=== PATIENT | female | born 1975 | race African-American/Black ===

== ENCOUNTER 2023-01-23 20:40 | Emergency (ER) | payer MEDICAID ==
[~2023-01-23] VITALS: Ht 185.4 cm; Wt 96.3 kg
[2023-01-23 21:44] VITALS: O2SAT 97
[2023-01-23] MEDS ORDERED: IBUPROFEN 600MG TABLET PO STA (23:46)
[2023-01-24 01:53] VITALS: BP 124/84
[2023-01-24 03:26] VITALS: PULSE 98; RESP 18; TEMP 98.3
== END 2023-01-24 03:27 | disposition home or self-care (01) ==
LOC: ER 20:40
DX: M25.562 Pain in left knee (principal); M25.561 Pain in right knee; I10 Essential (primary) hypertension; J44.1 Chronic obstructive pulmonary disease with (acute) exacerbation; Z98.890 Other specified postprocedural states; Z86.59 Personal history of other mental and behavioral disorders
CPT/HCPCS: 71045; 73562; 99284

== ENCOUNTER 2023-10-24 22:17 | Inpatient (IN) | payer MEDICAID ==
[~2023-10-24] VITALS: Ht 182.9 cm; Wt 44.9 kg
[2023-10-24] MEDS: ALBUTEROL (0.083%) 2.5MG/3ML NEB HHN STA (23:56)
[2023-10-24] MEDS: IPRATROPIUM BROMIDE (0.02%) 0.5MG/2.5ML NEB HHN STA (23:56)
[2023-10-24 23:58] VITALS: PULSE 77; RESP 20; O2SAT 96
[2023-10-25 00:02] LABS: BASOPHILS % 0.2 % (0.0-2.0); EOSINOPHILS % 5.7 % (0.0-5.0); HEMATOCRIT. 40.1 % (36.0-48.0); HEMOGLOBIN. 13.4 g/dL (12.0-16.0); MEAN CORPUSCULAR HEMOGLOBIN 30.9 pg (28.0-32.0); MEAN CORPUSCULAR HGB CONC 33.4 g/dL (31.0-37.0); MEAN CORPUSCULAR VOLUME 92.6 fL (81.0-99.0); MEAN PLATELET VOLUME 10.2 fl (7.4-10.4); MONOCYTES % 7.1 % (2.0-8.0); PLATELET 238 x1000/uL (130-400); RED BLOOD CELL COUNT 4.33 mill/uL (4.2-5.4); RED CELL DISTRIBUTION WIDTH 13.5 % (11.6-14.6); WHITE BLOOD COUNT 8.3 x1000/uL (4.5-11.0)
[2023-10-25 00:12] LABS: CHLORIDE 108 mEq/L (98-107); SODIUM 141 mEq/L (136-145)
[2023-10-25 00:13] LABS: CARBON DIOXIDE 29 mEq/L (21-32)
[2023-10-25 00:14] LABS: CALCIUM 9.3 mg/dL (8.7-10.4)
[2023-10-25 00:18] LABS: CREATININE 0.7 mg/dL (0.6-1.0); GLUCOSE 97 mg/dL (70-105)
[2023-10-25 00:19] LABS: TROPONIN I HIGH SENSITIVITY 4 ng/L (3.0-34); UREA NITROGEN BLOOD 8 mg/dL (9-23)
[2023-10-25 00:23] LABS: ETHANOL BLOOD < 10 mg/dL (<10)
[2023-10-25 00:35] LABS: HCG SCREEN NEGATIVE
[2023-10-25] MEDS: ALBUTEROL (0.083%) 2.5MG/3ML NEB HHN ONE (00:45)
[2023-10-25] MEDS: METHYLPREDNISOLONE SOD SUCC 125MG/2ML (ACT-O-VIAL) IV STA (01:13)
[2023-10-25] MEDS: HYDRALAZINE 20MG/ML VIAL IV NR (01:13)
[2023-10-25] MEDS: METHYLPREDNISOLONE SOD SUCC 125MG/2ML (ACT-O-VIAL) IV NR (01:13)
[2023-10-25] MEDS ORDERED: IPRATROPIUM/ALBUTEROL 0.5-3(2.5)MG/3ML NEB HHN PRN (12:30)
[2023-10-25] MEDS ORDERED: ACETAMINOPHEN 325MG TABLET PO PRN (14:15)
[2023-10-25] MEDS ORDERED: ONDANSETRON HCL 4MG/2ML INJ IV PRN (14:15)
[2023-10-25] MEDS ORDERED: DOCUSATE SODIUM 100MG CAPSULE PO PRN (14:15)
[2023-10-25] MEDS ORDERED: CLONIDINE 0.1MG TABLET PO PRN (14:15)
[2023-10-25] MEDS: METHYLPREDNISOLONE SOD SUCC 40MG/ML (ACT-O-VIAL) IV SCH (14:38)
[2023-10-25] MEDS ORDERED: IPRATROPIUM/ALBUTEROL 0.5-3(2.5)MG/3ML NEB HHN SCH (16:00)
[2023-10-25] MEDS: ENOXAPARIN 30MG/0.3ML SYR SUBCUT SCH (18:27)
[2023-10-25 20:05] VITALS: PULSE 84; RESP 18
[2023-10-25] MEDS: IPRATROPIUM/ALBUTEROL 0.5-3(2.5)MG/3ML NEB HHN SCH (20:05)
[2023-10-25] MEDS ORDERED: ZOLPIDEM TARTRATE 5MG TABLET PO PRN (21:00)
[2023-10-26] VITALS (9 sets, daily range): BP systolic 109–146; BP diastolic 62–98; PULSE 76–101; RESP 18–20; TEMP 36.16956–36.6696; O2SAT 95–100
[2023-10-26 09:53] LABS: BASOPHILS % 0.6 % (0.0-2.0); HEMATOCRIT. 46.3 % (36.0-48.0); HEMOGLOBIN. 15.4 g/dL (12.0-16.0); LYMPHOCYTES % 15.1 % (20.0-50.0); MEAN CORPUSCULAR HGB CONC 33.3 g/dL (31.0-37.0); MEAN CORPUSCULAR VOLUME 93.1 fL (81.0-99.0); MONOCYTES % 1.7 % (2.0-8.0); NEUTROPHILS % 82.6 % (40.0-76.0); PLATELET 254 x1000/uL (130-400); RED BLOOD CELL COUNT 4.98 mill/uL (4.2-5.4); RED CELL DISTRIBUTION WIDTH 13.3 % (11.6-14.6); WHITE BLOOD COUNT 11.1 x1000/uL (4.5-11.0)
[2023-10-26 10:03] LABS: CHLORIDE 102 mEq/L (98-107); POTASSIUM 4.3 mEq/L (3.5-5.1); SODIUM 136 mEq/L (136-145)
[2023-10-26 10:04] LABS: CALCIUM 10.2 mg/dL (8.7-10.4); CARBON DIOXIDE 24 mEq/L (21-32)
[2023-10-26 10:09] LABS: CREATININE 0.9 mg/dL (0.6-1.0); GLUCOSE 238 mg/dL (70-105); UREA NITROGEN BLOOD 12 mg/dL (9-23)
[2023-10-26 10:11] LABS: CREATINE KINASE MB FRACTION 2.4 ng/mL (0.5-3.6)
[2023-10-26 10:14] LABS: CREATINE KINASE 82 IU/L (34-145)
[2023-10-26 10:18] LABS: TROPONIN I HIGH SENSITIVITY < 4 ng/L (3.0-34)
[2023-10-26] MEDS ORDERED: METH4TAB95 MT (13:56)
[2023-10-26] MEDS ORDERED: ALBU90AE INH (13:56)
== END 2023-10-26 16:03 | disposition home or self-care (01) | DRG 140 ==
LOC: ER 22:17 → 5WST 10-25 00:45 → EDBEDREQTM 10-25 01:04 → EDBEDREQ 10-25 01:04 → 8WST 10-25 23:33
PROVIDERS: ADMIT Internal Medicine; ATTEND Internal Medicine
DX: J44.1 Chronic obstructive pulmonary disease with (acute) exacerbation (principal); J96.00 Acute respiratory failure, unspecified whether with hypoxia or hypercapnia; I50.9 Heart failure, unspecified; I11.0 Hypertensive heart disease with heart failure; F14.10 Cocaine abuse, uncomplicated; Z20.822 Contact with and (suspected) exposure to COVID-19; F17.210 Nicotine dependence, cigarettes, uncomplicated; Z88.8 Allergy status to other drugs, medicaments and biological substances
CPT/HCPCS: 36415; 71045; 80048; 80320; 82550; 82553; 83880; 84484; 84703; 85025; 85379; 87426; 93005; 94640; 99285; J1650; J2919; J2920; G0480

== ENCOUNTER 2024-04-09 22:58 | Emergency (ER) | payer MEDICAID ==
[~2024-04-09] VITALS: Ht 172.7 cm; Wt 79.0 kg
[~2024-04-09 22:58] MED LIST: ALBU90AE INH; METH4TAB95 MT
[2024-04-09 23:00] VITALS: TEMP 36.9; O2SAT 100
[2024-04-09] MEDS: KETOROLAC 15MG/ML VIAL IV ONE (23:15)
[2024-04-09] MEDS: METOCLOPRAMIDE HCL 10MG/2ML VIAL IV ONE (23:15)
[2024-04-09] MEDS: DIPHENHYDRAMINE 50MG/ML VIAL IV ONE (23:15)
[2024-04-09 23:40] LABS: EOSINOPHILS % 4.9 % (0.0-5.0); HEMATOCRIT. 42.7 % (36.0-48.0); HEMOGLOBIN. 14.2 g/dL (12.0-16.0); LYMPHOCYTES % 55.6 % (20.0-50.0); MEAN CORPUSCULAR HEMOGLOBIN 30.9 pg (28.0-32.0); MEAN CORPUSCULAR HGB CONC 33.3 g/dL (31.0-37.0); MEAN CORPUSCULAR VOLUME 92.8 fL (81.0-99.0); MEAN PLATELET VOLUME 9.9 fl (7.4-10.4); MONOCYTES % 7.8 % (2.0-8.0); NEUTROPHILS % 30.7 % (40.0-76.0); PLATELET 222 x1000/uL (130-400); RED BLOOD CELL COUNT 4.61 mill/uL (4.2-5.4); RED CELL DISTRIBUTION WIDTH 13.1 % (11.6-14.6); WHITE BLOOD COUNT 9.4 x1000/uL (4.5-11.0)
[2024-04-09 23:45] LABS: CARBON DIOXIDE 25 mEq/L (21-32); CHLORIDE 109 mEq/L (98-107); POTASSIUM 4.1 mEq/L (3.5-5.1); SODIUM 144 mEq/L (136-145)
[2024-04-09 23:46] LABS: CALCIUM 9.6 mg/dL (8.7-10.4)
[2024-04-09 23:50] LABS: CREATININE 0.7 mg/dL (0.6-1.0); GLUCOSE 113 mg/dL (70-105)
[2024-04-09 23:51] LABS: UREA NITROGEN BLOOD 13 mg/dL (9-23)
[2024-04-09 23:57] LABS: ETHANOL BLOOD < 10 mg/dL (<10)
[2024-04-10 00:19] LABS: HCG SCREEN NEGATIVE
[2024-04-10] MEDS ORDERED: ACET-2708 MT (00:30)
[2024-04-10] MEDS: DIPHENHYDRAMINE 50MG/ML VIAL IV NR (03:05)
[2024-04-10] MEDS: METOCLOPRAMIDE HCL 10MG/2ML VIAL IV NR (03:05)
[2024-04-10 03:06] VITALS: BP 160/96; PULSE 80; RESP 18
[2024-04-10] MEDS: KETOROLAC 15MG/ML VIAL IV NR (03:06)
[2024-04-10] MEDS: SODIUM CHLORIDE 0.9% 250 ML IV ONE (03:16)
== END 2024-04-10 04:05 | disposition home or self-care (01) ==
LOC: ER 22:58
DX: G44.209 Tension-type headache, unspecified, not intractable (principal); I11.0 Hypertensive heart disease with heart failure; I50.9 Heart failure, unspecified; J44.9 Chronic obstructive pulmonary disease, unspecified; F10.90 Alcohol use, unspecified, uncomplicated; Z91.148 Patient's other noncompliance with medication regimen for other reason; Y90.9 Presence of alcohol in blood, level not specified
CPT/HCPCS: 80048; 80320; 84703; 85025; 36415; 70450; 99285; 96361; 96374; 96375; J7050; J1200; J1885; J2765; Z7610 ×2; G0480